=== PATIENT | female | born 1955 ===

== ENCOUNTER 2017-11-18 06:40 | Inpatient (IN) | payer MEDICAID ==
[2017-11-18] MEDS ORDERED: LR 1,000 ML IV ONE (07:08)
--- NOTE | 2017-11-18 07:13 | PDHPUP ---
History & Physical Update H&P update statement: This history and physical update is based on an assessment of the patient which was completed after admission or registration (within 24 hours), but prior to the surgery/procedure. H&P update: H&P reviewed & patient examined, no change in patient's condition since H&P completed
--- NOTE | 2017-11-18 07:14 | POSTOPPROG ---
Post Op Note Date of Operation: 11/18/17 Surgeon: Peter Rosado [employer] Supervisor: Hari Nogueira Anesthesia: IV Sedation Pre-op Diagnosis: Right ICA aneurysm Post-op Diagnosis: Same Procedure: Right ICA aneurysm repair Inf/Abcess present in the surg proc area at time of surgery?: No EBL: Minimal Specimen(s): aneurysm
[2017-11-18] MEDS ORDERED: BUPIVACAINE/EPI 0.5% 30 ML SDV ONE (07:46)
[2017-11-18] MEDS ORDERED: MIDAZOLAM 2 MG/2 ML VIAL IVP ONE (07:55)
--- NOTE | 2017-11-18 07:57 | PDANEPAE ---
ANE History of Present Illness 62 year old for right CEA ANE Past Medical History - Cardiovascular History Hx Hypertension: No Hx Arrhythmias: No Hx Chest Pain: No Hx Coronary Artery / Peripheral Vascular Disease: No Hx CHF / Valvular Disease: No Hx Palpitations: No - Pulmonary History Hx COPD: Yes Hx Asthma/Reactive Airway Disease: No Hx Recent Upper Respiratory Infection: No Hx Oxygen in Use at Home: Yes O2 in Use at Home (L/minute): 4L w/ rest, 5L w/ work, 6L w/activity Hx Sleep Apnea: No Sleep Apnea Screening Result - Last Documented: Negative Pulmonary History Comment: Emphysema, Stage 4 - dx 2005. Takes azythromycin as prophylactic against URI's - Neurologic History Hx Cerebrovascular Accident: No Hx Seizures: No Hx Dementia: No - Endocrine History Hx Diabetes: No Endocrine History Comment: hypothyroid - Renal History Hx Renal Disorders: No Renal History Comment: overactive bladder - Liver History Hx Hepatic Disorders: No - Neurological & Psychiatric Hx Hx Neurological and Psychiatric Disorders: No - Cancer History Hx Cancer: No - Congenital Disorder History Hx Congenital Disorders: No - GI History Hx Gastrointestinal Disorders: No - Other Health History Other Health History: osteoporosis. sinusitis. wears glasses. top dentures. brusing on BUE's, skin very thin. very dry mouth - Chronic Pain History Chronic Pain: No - Surgical History Prior Surgeries: tonsillectomy as child. colonoscopy ANE Review of Systems Review of Systems: - Exercise capacity METS (RN): 2 METS ANE Patient History - Allergies Allergies/Adverse Reactions: Sulfa (Sulfonamide Antibiotics) Allergy (Verified 11/05/17 12:22) - Home Medications Home Medications: Adult One Daily Multivit Tab 11/05/17 [Last Taken 11/11/17] Albuterol 5 mg/ml INH 11/05/17 [Last Taken 11/17/17] Arnuity Ellipta 11/05/17 [Last Taken 11/18/17] Aspirin 81mg (*) 11/05/17 [Last Taken 11/11/17] [place] Saline 11/05/17 [Last Taken 11/18/17] Azithromycin 11/05/17 [Last Taken 11/18/17] Claritin 11/05/17 [Last Taken 11/18/17] Fluticasone Propionate 11/05/17 [Last Taken 11/18/17] Fosamax 70 MG (*) 11/05/17 [Last Taken 11/12/17] Levothyroxine 11/05/17 [Last Taken 11/18/17] Proair Hfa 11/05/17 [Last Taken 11/11/17] Spiriva Handihaler 11/05/17 [Last Taken 11/18/17] Symbicort 160-4.5 Mcg Inh (*) 11/05/17 [Last Taken 11/18/17] Vitamin B Complex 11/05/17 [Last Taken 11/11/17] Vitamin D3 11/05/17 [Last Taken 11/11/17] - NPO status NPO Since - Liquids (Date): 11/18/17 NPO Since - Liquids (Time): 05:00 NPO Since - Solids (Date): 11/17/17 NPO Since - Solids (Time): 20:00 - Smoking Hx Smoking Status: Former smoker - Family Anes Hx Family Hx Anesthesia Complications: none ANE Labs/Vital Signs - Vital Signs Blood Pressure: 157/62 Heart Rate: 79 Respiratory Rate: 16 O2 Sat (%): 98 Height: 157.48 cm Weight: 48.534 kg ANE Physical Exam - Airway Neck exam: FROM Mallampati Score: Class 2 Mouth exam: normal dental/mouth exam - Pulmonary Pulmonary: no respiratory distress - Cardiovascular Cardiovascular: regular rate and rhythym - ASA Status ASA Status: III ANE Anesthesia Plan Anesthesia Plan: MAC
[2017-11-18] MEDS ORDERED: fentaNYL 100 MCG/2 ML INJ ONE ×3 (08:10→10:46)
[2017-11-18] MEDS ORDERED: PROPOFOL/EMULSION 500 MG/50 ML BOTTLE IV ONE (08:25)
[2017-11-18] MEDS ORDERED: LIDOCAINE 1% 300 MG/30 ML SDV ONE (08:47)
--- NOTE | 2017-11-18 09:37 | ASMTCMCOM ---
CM Note CM Note Notes: 62yr old female admitted due to R ICA Aneurysm. She has a Hx of Chronic bronchitis/sinusitis, CAD, COPD, Pulm HTN/nodules, Dysphasia, Hypothyroid, OP. Patient to have R ICA repair. Patient lives with her daughter and Gr son in [place]. CM not anticipating that patient will have discharge needs. Date Signed: 11/18/2017 09:36 AM Electronically Signed By:Sylwia Britton LCSW
--- NOTE | 2017-11-18 09:40 | ASMTLACE ---
LACE Acuity / Level of Answers: Yes Care: Did the patient have an inpatient admission? Comorbidities - select Answers: Chronic pulmonary disease all that apply Coronary Artery Disease Other Notes: Chronic Bronchitis/sinusitis, R ICA # of Emergency department Answers: 0 visits in the last 6 months Score: 8 Date Signed: 11/18/2017 09:39 AM Electronically Signed By:Sylwia Britton LCSW
[2017-11-18] MEDS ORDERED: PROTAMINE SULFATE 50 MG/5 ML VIAL IVP ONE (09:56)
[2017-11-18] MEDS ORDERED: SURGIFLO MATRIX KIT WITH THROMBIN 8 ML TP ONE (10:12)
[2017-11-18] MEDS ORDERED: HYDROCODONE/APAP 5/325 TAB PO PRN (10:45)
[2017-11-18] MEDS ORDERED: MAGNESIUM HYDROXIDE 30 ML UDCUP PO PRN (10:45)
[2017-11-18] MEDS ORDERED: ONDANSETRON 4 MG/2 ML VIAL IVP PRN ×2 (10:45)
[2017-11-18] MEDS ORDERED: fentaNYL 100 MCG/2 ML INJ IVP PRN (10:45)
[2017-11-18] MEDS ORDERED: HYDROmorphONE/DILAUDID 1 MG/ML INJ IVP PRN (10:45)
[2017-11-18] MEDS ORDERED: ZOLPIDEM TARTRATE 5 MG TAB PO PRN (10:45)
[2017-11-18] MEDS ORDERED: ALBUTEROL 3 ML DEYVIAL IH PRN (10:45)
[2017-11-18] MEDS ORDERED: PROMETHAZINE HCL 25 MG/ML INJ IVP PRN (10:45)
[2017-11-18] MEDS ORDERED: NALOXONE HCL 0.4 MG/ML INJ IVP PRN (10:45)
--- NOTE | 2017-11-18 10:46 | POSTANESTH ---
Post Anesthetic Evaluation Cardiovascular Status: Normal, Stable Respiratory Status: Similar to Pre-op Cond. Level of Consciousness/Mental Status: Can Participate in Eval Pain Control: Adequate, Prn Tx Ordered Nausea/Vomiting Control: Adequate, Prn Tx Ordered Complications Possibly Related to Anesthesia: None Noted
[2017-11-18] MEDS ORDERED: LR 1,000 ML IV SCH (11:00)
--- NOTE | 2017-11-18 11:47 | GOP ---
DATE OF OPERATION: 11/18/2017 SURGEON: Peter Rosado MD [employer] CONSULTANT: Hari Nogueira MD. ANESTHESIA: Local regional with IV sedation. ANESTHESIOLOGIST: Jeremy Del Rosario MD PREOPERATIVE DIAGNOSIS: Right internal carotid artery aneurysm. POSTOPERATIVE DIAGNOSIS: Right internal carotid artery aneurysm. PROCEDURE PERFORMED: Right internal artery carotid aneurysm resection with primary repair. FINDINGS: Saccular mid ICA aneurysm. INDICATIONS: 62-year-old female with a right internal carotid artery aneurysm. She has a history of severe oxygen-dependent COPD. She is undergoing surgical excision and repair at this time. Risks and benefits were explained including, but not limited to, bleeding, infection, stroke, nerve injury, arterial stenosis, recurrent arterial degeneration, as well as the cardiorespiratory complications. All questions were answered. She desires to proceed. DESCRIPTION OF PROCEDURE: Deep cervical plexus was applied preoperatively. Monitored anesthesia was started. The right neck was infiltrated with 0.5% Marcaine. A longitudinal incision was created along the anterior border of the sternocleidomastoid muscle. The platysma muscle was divided. The soft tissues were divided allowing for the carotid sheath to be identified. The facial vein was circumferentially encompassed and transected between suture ligatures. The common carotid artery, internal carotid artery, external carotid artery, and superior thyroid artery branches were all circumferentially encompassed with vessel loops. The proximal ICA dissection was taken high beneath the level of the mandible. The digastric muscle and its tendon were dissected out. The hypoglossal nerve was completely dissected and preserved throughout the dissection along with its adjacent ansa cervicalis. The aneurysm was noted to be approximately 5 cm beyond the bifurcation. There was significant tortuosity of the internal carotid artery at this location where the calcified aneurysm functioned as the lead point allowing for a nicely redundant kink to work with. Distal to this, the internal carotid artery was able to be circumferentially encompassed with a vessel loop to facilitate the remaining dissection. Extensive time was spent peeling the aneurysm off the hypoglossal nerve and vagus nerves. Once accomplished, the aneurysm was able to be retracted nicely down to the operative field. There was sufficient redundancy to allow for the aneurysm to be resected with primary repair to be completed. A heparin bolus was administered. The artery was occluded both proximally and distally and the aneurysm resected. The ends were spatulated, and a primary repair was performed with running competing 7-0 Prolene sutures. The artery was fore-bled and back-bled prior to final closure. There was minimal calcific plaque noted with the internal carotid artery at this location. Satisfactory hemostasis was assured throughout the neck. FloSeal was placed over the anastomosis. The neck was closed in layers with absorbable sutures followed by Dermabond. The patient was taken to the recovery room awake uneventfully, moving all 4 extremities well. /[id number]/MODL MTDD
--- NOTE | 2017-11-18 12:21 | PDMN ---
Medical Necessity Medical necessity: [facility] IP only surgery; cpt 21820 Aneurysm Repair of Carotid Artery
[2017-11-18] MEDS: KETOROLAC 15 MG/1 ML SDV IVP SCH ×2 (12:59→17:40)
[2017-11-18] MEDS: ACETAMINOPHEN 325 MG TAB PO PRN (16:34)
--- NOTE | 2017-11-18 16:42 | SOAPPROG ---
SOAP Progress Note Assessment/Plan: Assessment:postop check - no c/o. min pain. c/o [place] only. VSS. comfortable. neck flat. tongue midline. doing great. neuro intact. home in am if no overnight issues. Plan: 11/18/17 16:41 Objective: Vital Signs Temp Pulse Resp BP Pulse Ox 36.4 C 78 14 145/73 H 97 11/18/17 15:30 11/18/17 15:30 11/18/17 15:30 11/18/17 15:30 11/18/17 15:30 11/17/17 11/18/17 11/19/17 05:59 05:59 05:59 Intake Total 610 Output Total 20 Balance 590 ICD10 Worksheet Patient Problems: Problems Problem Status Onset Carotid aneurysm, right Acute - ICD10 Problem Qualifiers (1) Carotid aneurysm, right
[2017-11-18] MEDS ORDERED: [UNRECOGNIZED DRUG - OTHER] EACHNARE PRN (17:02)
[2017-11-18] MEDS ORDERED: SODIUM CHLORIDE EACHNARE PRN (17:02)
[2017-11-18] MEDS ORDERED: ALBUTEROL 60 PUFFS/8 GM MDI IH PRN (17:02)
[2017-11-18] MEDS: FLUTICASONE NASAL 120 SPRAYS/16 GM MDI EACHNARE SCH (20:02)
[2017-11-19] MEDS: KETOROLAC 15 MG/1 ML SDV IVP SCH ×2 (01:23→06:09)
[2017-11-19 04:09] VITALS: BP 136/67
[2017-11-19] MEDS: ACETAMINOPHEN 325 MG TAB PO PRN (04:26)
[2017-11-19] MEDS ORDERED: LEVOTHYROXINE 88 MCG TAB PO SCH (06:00)
[2017-11-19] MEDS: FLUTICASONE NASAL 120 SPRAYS/16 GM MDI EACHNARE SCH (08:38)
[2017-11-19] MEDS ORDERED: AZITHROMYCIN 250 MG TAB PO SCH (09:00)
[2017-11-19] MEDS ORDERED: ARNUITY ELLIPTA IH SCH (09:00)
[2017-11-19] MEDS ORDERED: Tiotropium Bromide [Spiriva Respimat] IH SCH (09:00)
[2017-11-19] MEDS ORDERED: MULTIVITAMINS 1 EACH TAB PO SCH (09:00)
[2017-11-19] MEDS ORDERED: ASPIRIN EC 81 MG TAB PO SCH (09:00)
[2017-11-19] MEDS ORDERED: CETIRIZINE 10 MG TAB PO SCH (09:00)
[2017-11-19] MEDS ORDERED: BUDESONIDE/FORMOTEROL 160/4.5 60 PUFFS/MDI IH SCH (09:00)
[2017-11-19] MEDS ORDERED: CHOLECALCIFEROL VIT D3 1,000 UNITS TAB PO SCH (09:00)
[2017-11-19] MEDS ORDERED: VITAMIN B COMPLEX 1 EA CAP/TAB PO SCH (09:00)
--- NOTE | 2017-11-19 10:16 | GDS ---
PROCEDURE DATE: November 18, 2017. PROCEDURE PERFORMED: Right internal carotid aneurysm resection with primary repair. DISCHARGE SUMMARY: 62-year-old female with a history of right internal carotid artery aneurysm. She underwent a right internal carotid aneurysm resection with primary repair on November 18, 2017. She has a significant medical history of severe oxygen-dependent COPD. Overall, she had an uncomplicated postoperative course. Vital signs were stable. She remained neurologically intact. She had no difficulty with breathing or swallowing. Her pain was well managed with oral medications. She will be discharged to home and is to resume all her home medications. A prescription for [place] was provided. She will follow up in the office in 2 weeks. Wound care discussed with patient. All questions addressed. HOME MEDICATIONS: Tylenol, Proventil, Fosamax, aspirin, Zithromax, Symbicort, Zyrtec, vitamin D, Flonase, Synthroid, milk of magnesia, multivitamins, vitamin B complex. /[id number]/MODL MTDD
[2017-11-22] MEDS ORDERED: ALENDRONATE SODIUM 70 MG TAB PO SCH (07:00)
== END 2017-11-19 10:58 | disposition home or self-care (01) | DRG 182 ==
LOC: F2N 06:40 → F3E 12:19
PROVIDERS: ADMIT Surgery; ATTEND Surgery
PROC: 03B Upper Arteries, Excision (ICD-10-PCS; principal; 2017-11-18 08:00)
DX: I72.0 Aneurysm of carotid artery (principal); J44.9 Chronic obstructive pulmonary disease, unspecified; Z99.81 Dependence on supplemental oxygen; Z79.51 Long term (current) use of inhaled steroids; Z79.2 Long term (current) use of antibiotics; Z79.82 Long term (current) use of aspirin
CPT/HCPCS: J1642; J1644; J1885; J2250; J2405; J2704; J2720; J3010

== ENCOUNTER → 2018-06-22 | Outpatient (CLI) | payer MEDICAID | LOC: FIMAGING 09:38 | PROVIDERS: ATTEND Surgery | DX: I72.0 Aneurysm of carotid artery (principal); H93.11 Tinnitus, right ear; R51 Headache ==